=== PATIENT | female | born 1970 | race Two or more races ===

== ENCOUNTER 2018-12-22 20:38 | Emergency (ER) | payer MEDICAID ==
[~2018-12-22] VITALS: Ht 175.3 cm; Wt 220.0 kg
[2018-12-22] MEDS ORDERED: ANXIETY MED PO (20:54)
[2018-12-23] MEDS ORDERED: IBUPROFEN 800 MG TABLET ONE (00:22)
[2018-12-23] MEDS ORDERED: IBUPROFEN 800 MG TABLET PO ONE (00:30)
[2018-12-23 01:16] VITALS: BP 161/93
== END 2018-12-23 01:23 | disposition home or self-care (01) ==
LOC: EMS 20:39
DX: S60.221A Contusion of right hand, initial encounter (principal); S60.021A Contusion of right index finger without damage to nail, initial encounter; F41.9 Anxiety disorder, unspecified; W23.0XXA Caught, crushed, jammed, or pinched between moving objects, initial encounter; Y93.89 Activity, other specified; Y92.89 Other specified places as the place of occurrence of the external cause; Y99.8 Other external cause status

== ENCOUNTER 2019-04-20 18:02 | Emergency (ER) | payer BC, MEDICAID ==
[~2019-04-20] VITALS: Ht 175.3 cm; Wt 120.0 kg
[~2019-04-20 18:02] MED LIST: ANXIETY MED PO
[2019-04-20] MEDS ORDERED: TiZANidine HCL 4 MG TABLET PO ONE (21:30)
[2019-04-20] MEDS ORDERED: KETOROLAC TROMETHAMINE 30 MG/ML VIAL IM ONE (21:30)
[2019-04-20] MEDS ORDERED: LIDOCAINE 5% TRANSDERMAL PATCH TD ONE (21:30)
[2019-04-20 23:03] VITALS: BP 156/100
== END 2019-04-20 23:03 | disposition home or self-care (01) ==
LOC: EMS 18:06
DX: S16.1XXA Strain of muscle, fascia and tendon at neck level, initial encounter (principal); S29.012A Strain of muscle and tendon of back wall of thorax, initial encounter; R20.2 Paresthesia of skin; F41.9 Anxiety disorder, unspecified; V43.93XA Unspecified car occupant injured in collision with pick-up truck in traffic accident, initial encounter; Y93.89 Activity, other specified; Y92.488 Other paved roadways as the place of occurrence of the external cause; Y99.8 Other external cause status
CPT/HCPCS: 72070; 72125; 96372; 99284; J1885

== ENCOUNTER 2020-05-31 11:19 | Emergency (ER) | payer BC, MEDICAID ==
[~2020-05-31] VITALS: Ht 175.3 cm; Wt 113.6 kg
[2020-05-31] MEDS ORDERED: IBUPROFEN 600 MG TABLET PO ONE (13:30)
[2020-05-31 14:17] LABS: BASOPHILS % (AUTO) 0.6 % (0.0-2.0); EOSINOPHILS % (AUTO) 1.9 % (1.0-6.0); HEMATOCRIT 35.6 % (36-46); HEMOGLOBIN 11.6 g/dL (12.0-16.0); LYMPHOCYTES % (AUTO) 33.2 % (22.0-44.0); MEAN CORPUSCULAR HEMOGLOBIN 28.8 pg (26.0-34.0); MEAN CORPUSCULAR HGB CONC 32.4 G/dL (31.0-37.0); MEAN CORPUSCULAR VOLUME 89 fL (80-100); MONOCYTES # (AUTO) 0.5 K/uL (0.1-1.0); MONOCYTES % (AUTO) 8.9 % (2.0-9.0); NEUTROPHILS # (AUTO) 3.3 K/uL (1.8-7.7); NEUTROPHILS % (AUTO) 55.4 % (40.0-70.0); PLATELET COUNT (AUTO) 279 K/uL (150-450); RED BLOOD CELL COUNT(AUTO) 4.01 MIL/uL (4.00-5.20); RED CELL DISTRIBUTION WIDTH 15.7 % (11.5-14.5)
[2020-05-31 14:38] LABS: FREE T4 (FREE THYROXINE) 1.29 ng/dL (0.76-1.46); THYROID STIMULATING HORMONE 4.71 uIU/mL (0.36-3.74)
[2020-05-31 14:40] LABS: B-TYPE NATRIURETIC PEPTIDE 24 pg/mL (0-100)
[2020-05-31 15:27] LABS: ANION GAP 10 mmol/L (8-16); CALCIUM, TOTAL 9.2 mg/dL (8.8-10.5); CARBON DIOXIDE 27 mmol/L (22-29); CHLORIDE 103 mmol/L (98-107); CREATININE 0.78 mg/dL (0.60-1.30); GLOMERULAR FILTR. RATE CALC > 60 mL/min (>60); GLUCOSE,RANDOM 93 mg/dL (70-110); POTASSIUM 4.2 mmol/L (3.5-5.1); SODIUM SERUM 140 mmol/L (136-145); UREA NITROGEN, BLOOD 12 mg/dL (7-18)
[2020-05-31 15:33] LABS: ALANINE AMINOTRANSFERASE 36 U/L (12-78); ALBUMIN 3.5 g/dL (3.4-5.0); ALKALINE PHOSPHATASE 90 U/L (46-116); ASPARTATE AMINOTRANSFERASE 40 U/L (15-37); BILIRUBIN,TOTAL 0.3 mg/dL (0.1-1.0); TOTAL PROTEIN, SERUM 8.4 g/dL (6.4-8.2)
[2020-05-31 15:51] VITALS: BP 123/41
== END 2020-05-31 15:53 | disposition home or self-care (01) ==
LOC: EMS 11:23
DX: N93.9 Abnormal uterine and vaginal bleeding, unspecified (principal); D64.9 Anemia, unspecified
CPT/HCPCS: 84439; 84443; 93005; 99284

== ENCOUNTER 2020-11-16 18:32 | Emergency (ER) | payer MEDICAID ==
[~2020-11-16] VITALS: Ht 175.3 cm; Wt 118.2 kg
[2020-11-16] MEDS ORDERED: FURO20 PO (19:11)
[2020-11-16 21:21] LABS: BASOPHILS % (AUTO) 0.5 % (0.0-2.0); EOSINOPHILS % (AUTO) 3.1 % (1.0-6.0); HEMATOCRIT 34.7 % (36-46); HEMOGLOBIN 11.2 g/dL (12.0-16.0); LYMPHOCYTES # (AUTO) 2.4 K/uL (1.0-4.8); LYMPHOCYTES % (AUTO) 33.8 % (22.0-44.0); MEAN CORPUSCULAR HEMOGLOBIN 28.9 pg (26.0-34.0); MEAN CORPUSCULAR HGB CONC 32.4 G/dL (31.0-37.0); MEAN CORPUSCULAR VOLUME 89 fL (80-100); MONOCYTES # (AUTO) 0.5 K/uL (0.1-1.0); NEUTROPHILS # (AUTO) 3.9 K/uL (1.8-7.7); NEUTROPHILS % (AUTO) 55.6 % (40.0-70.0); PLATELET COUNT (AUTO) 268 K/uL (150-450); RED BLOOD CELL COUNT(AUTO) 3.89 MIL/uL (4.00-5.20); RED CELL DISTRIBUTION WIDTH 16.2 % (11.5-14.5)
[2020-11-16 21:33] LABS: ANION GAP 9 mmol/L (8-16); CALCIUM, TOTAL 8.8 mg/dL (8.8-10.5); CARBON DIOXIDE 27 mmol/L (22-29); CHLORIDE 104 mmol/L (98-107); CREATININE 0.75 mg/dL (0.60-1.30); GLOMERULAR FILTR. RATE CALC > 60 mL/min (>60); GLUCOSE,RANDOM 163 mg/dL (70-110); POTASSIUM 4.2 mmol/L (3.5-5.1); SODIUM SERUM 140 mmol/L (136-145); UREA NITROGEN, BLOOD 12 mg/dL (7-18)
[2020-11-16 21:42] LABS: ALANINE AMINOTRANSFERASE 37 U/L (12-78); ALBUMIN 3.4 g/dL (3.4-5.0); ALKALINE PHOSPHATASE 93 U/L (46-116); ASPARTATE AMINOTRANSFERASE 42 U/L (15-37); BILIRUBIN,TOTAL 0.5 mg/dL (0.1-1.0); LIPASE 108 U/L (73-393); TOTAL PROTEIN, SERUM 8.3 g/dL (6.4-8.2)
[2020-11-16] MEDS ORDERED: MORPHINE SULFATE 4 MG/ML SYRINGE IVP ONE (22:15)
[2020-11-17] MEDS ORDERED: KETOROLAC TROMETHAMINE 30 MG/ML VIAL IVP ONE (01:00)
[2020-11-17 02:00] VITALS: BP 132/89
== END 2020-11-17 02:27 | disposition home or self-care (01) ==
LOC: EMS 18:33
DX: R60.0 Localized edema (principal); F41.9 Anxiety disorder, unspecified; Z79.899 Other long term (current) drug therapy
CPT/HCPCS: 36415; 71045; 80053; 81025; 83690; 83880; 84484; 85025; 93005; 93970; 96374; 96375; 99285; J1885; J2270

== ENCOUNTER 2021-02-07 17:44 | Emergency (ER) | payer MEDICAID ==
[~2021-02-07] VITALS: Ht 175.3 cm; Wt 131.8 kg
[~2021-02-07 17:44] MED LIST changes: -ANXIETY MED PO; +FURO20 PO
[2021-02-07 19:37] VITALS: BP 121/72
== END 2021-02-07 20:00 | disposition home or self-care (01) ==
LOC: EMS 17:46
DX: M79.675 Pain in left toe(s) (principal)
CPT/HCPCS: 99283

== ENCOUNTER 2021-04-07 21:15 | Inpatient (IN) | payer MEDICAID ==
[~2021-04-07] VITALS: Ht 175.3 cm; Wt 164.1 kg
[2021-04-07 21:52] LABS: BASOPHILS % (AUTO) 0.5 % (0.0-2.0); EOSINOPHILS % (AUTO) 1.3 % (1.0-6.0); HEMATOCRIT 33.2 % (36-46); HEMOGLOBIN 11.1 g/dL (12.0-16.0); LYMPHOCYTES # (AUTO) 1.8 K/uL (1.0-4.8); LYMPHOCYTES % (AUTO) 19.4 % (22.0-44.0); MEAN CORPUSCULAR HEMOGLOBIN 28.8 pg (26.0-34.0); MEAN CORPUSCULAR HGB CONC 33.5 G/dL (31.0-37.0); MEAN CORPUSCULAR VOLUME 86 fL (80-100); MONOCYTES # (AUTO) 0.8 K/uL (0.1-1.0); MONOCYTES % (AUTO) 8.5 % (2.0-9.0); NEUTROPHILS # (AUTO) 6.5 K/uL (1.8-7.7); NEUTROPHILS % (AUTO) 70.3 % (40.0-70.0); PLATELET COUNT (AUTO) 322 K/uL (150-450); RED BLOOD CELL COUNT(AUTO) 3.86 MIL/uL (4.00-5.20); RED CELL DISTRIBUTION WIDTH 15.1 % (11.5-14.5)
[2021-04-07 22:00] LABS: ANION GAP 8 mmol/L (8-16); CALCIUM, TOTAL 9.1 mg/dL (8.8-10.5); CARBON DIOXIDE 30 mmol/L (22-29); CHLORIDE 101 mmol/L (98-107); CREATININE 0.87 mg/dL (0.60-1.30); GLOMERULAR FILTR. RATE CALC > 60 mL/min (>60); GLUCOSE,RANDOM 118 mg/dL (70-110); POTASSIUM 3.9 mmol/L (3.5-5.1); SODIUM SERUM 139 mmol/L (136-145); UREA NITROGEN, BLOOD 10 mg/dL (7-18)
[2021-04-07 22:06] LABS: ALANINE AMINOTRANSFERASE 77 U/L (12-78); ALBUMIN 3.2 g/dL (3.4-5.0); ALKALINE PHOSPHATASE 162 U/L (46-116); ASPARTATE AMINOTRANSFERASE 64 U/L (15-37); BILIRUBIN,TOTAL 0.4 mg/dL (0.1-1.0); TOTAL PROTEIN, SERUM 8.4 g/dL (6.4-8.2)
[2021-04-08] MEDS ORDERED: BARIUM SULFATE 0.1% SUSPENSION 450 ML BOTTLE PO ONE (00:30)
[2021-04-08] MEDS ORDERED: ONDANSETRON HCL 4 MG/2 ML VIAL IVP ONE (00:30)
[2021-04-08] MEDS ORDERED: HYDROmorphone 2 MG/ML VIAL IVP ONE ×3 (00:30→05:00)
[2021-04-08] MEDS ORDERED: SODIUM CHLORIDE 0.9% 1,000 ML IV ONE ×2 (00:30→05:00)
[2021-04-08] MEDS ORDERED: IOHEXOL 350 MG/ML 150 ML VIAL ONE (01:00)
[2021-04-08] MEDS ORDERED: SODIUM CHLORIDE 0.9% 100 ML ONE (01:01)
[2021-04-08 01:14] LABS: LIPASE 69 U/L (73-393)
[2021-04-08] MEDS ORDERED: CefTRIAXone 1 GM/DEXTROSE 50 ML IV ONE (04:00)
[2021-04-08] MEDS ORDERED: PIPERACILLIN/TAZO 3.375 GM/D5W 50 ML IV ONE (04:50)
[2021-04-08] MEDS ORDERED: ONDANSETRON HCL 4 MG/2 ML VIAL IVP PRN ×2 (05:00→13:00)
[2021-04-08] MEDS ORDERED: 0.9% SODIUM CHLORIDE 10 ML SYRINGE IVP PRN (05:00)
[2021-04-08 05:20] LABS: COVID AG,FIA SOURCE NASOPHARYNGEAL
[2021-04-08 05:23] LABS: APPEARANCE,URINE CLEAR (CLEAR); BILIRUBIN,URINE NEGATIVE (NEGATIVE); GLUCOSE, URINE (UA) NEGATIVE (NEGATIVE); KETONES,URINE NEGATIVE (NEGATIVE); LEUKOCYTE ESTERASE ,URINE NEGATIVE (NEGATIVE); NITRATE,URINE NEGATIVE (NEGATIVE); OCCULT BLOOD,URINE NEGATIVE (NEGATIVE); PH,URINE 6.5 (5.0-8.0); PROTEIN,URINE NEGATIVE (NEGATIVE); UROBILINOGEN,URINE 0.2 mg/dL (<=1.0)
[2021-04-08] MEDS: HYDROmorphone 2 MG/ML VIAL IVP PRN ×2 (07:52→11:44)
[2021-04-08] MEDS ORDERED: PIPERACILLIN/TAZO 3.375 GM/D5W 50 ML IV SCH (11:00)
[2021-04-08] MEDS ORDERED: ACETAMINOPHEN 325 MG TABLET PO PRN (13:00)
[2021-04-08] MEDS ORDERED: MORPHINE SULFATE 2 MG/ML SYRINGE IVP PRN (13:00)
[2021-04-08] MEDS ORDERED: ZOLPIDEM TARTRATE 5 MG TABLET PO PRN (13:00)
[2021-04-08] MEDS ORDERED: MAGNESIUM HYDROXIDE SUSPENSION 30 ML UDCUP PO PRN (13:00)
[2021-04-08] MEDS ORDERED: BISACODYL 10 MG RECTAL RECTAL SUPPOSITORY PR PRN (13:00)
[2021-04-08 15:56] VITALS: BP 136/96
[2021-04-08] MEDS ORDERED: SODIUM CHLORIDE 0.9% 500 ML IV ONE (16:07)
[2021-04-08] MEDS: PIPERACILLIN/TAZO 3.375 GM/D5W 50 ML IV SCH ×2 (17:26→23:20)
[2021-04-08] MEDS: HEPARIN SODIUM,PORCINE 5,000 UNITS/ML VIAL SQ SCH (17:26)
[2021-04-08] MEDS: HYDROCODONE/ACETAMINOPHEN 5-325 MG TABLET PO PRN ×2 (17:30→21:29)
[2021-04-08 21:04] VITALS: BP 156/84
[2021-04-08] MEDS: DOCUSATE SODIUM 100 MG CAPSULE PO SCH (21:28)
[2021-04-09 04:09] VITALS: BP 146/82
[2021-04-09] MEDS: HYDROCODONE/ACETAMINOPHEN 5-325 MG TABLET PO PRN ×4 (04:12→23:34)
[2021-04-09 04:47] VITALS: BP 131/76
[2021-04-09] MEDS: PIPERACILLIN/TAZO 3.375 GM/D5W 50 ML IV SCH ×4 (05:01→22:21)
[2021-04-09] MEDS ORDERED: SODIUM CHLORIDE 0.9% 1,000 ML IV SCH (06:45)
[2021-04-09 07:29] VITALS: BP 148/91
[2021-04-09 07:52] LABS: BASOPHILS % (AUTO) 0.6 % (0.0-2.0); EOSINOPHILS % (AUTO) 1.6 % (1.0-6.0); HEMATOCRIT 30.6 % (36-46); HEMOGLOBIN 10.3 g/dL (12.0-16.0); LYMPHOCYTES # (AUTO) 1.7 K/uL (1.0-4.8); LYMPHOCYTES % (AUTO) 29.5 % (22.0-44.0); MEAN CORPUSCULAR HEMOGLOBIN 28.9 pg (26.0-34.0); MEAN CORPUSCULAR HGB CONC 33.6 G/dL (31.0-37.0); MEAN CORPUSCULAR VOLUME 86 fL (80-100); MONOCYTES # (AUTO) 0.6 K/uL (0.1-1.0); MONOCYTES % (AUTO) 11.1 % (2.0-9.0); NEUTROPHILS # (AUTO) 3.3 K/uL (1.8-7.7); NEUTROPHILS % (AUTO) 57.2 % (40.0-70.0); PLATELET COUNT (AUTO) 282 K/uL (150-450); RED BLOOD CELL COUNT(AUTO) 3.56 MIL/uL (4.00-5.20); RED CELL DISTRIBUTION WIDTH 15.3 % (11.5-14.5)
[2021-04-09 07:56] LABS: ANION GAP 6 mmol/L (8-16); CALCIUM, TOTAL 8.6 mg/dL (8.8-10.5); CARBON DIOXIDE 31 mmol/L (22-29); CHLORIDE 101 mmol/L (98-107); CREATININE 0.89 mg/dL (0.60-1.30); GLOMERULAR FILTR. RATE CALC > 60 mL/min (>60); GLUCOSE,RANDOM 107 mg/dL (70-110); POTASSIUM 3.9 mmol/L (3.5-5.1); SODIUM SERUM 138 mmol/L (136-145); UREA NITROGEN, BLOOD 6 mg/dL (7-18)
[2021-04-09] MEDS: FUROSEMIDE 20 MG TABLET PO SCH (09:17)
[2021-04-09] MEDS: DOCUSATE SODIUM 100 MG CAPSULE PO SCH ×2 (09:17→20:46)
[2021-04-09] MEDS: PANTOPRAZOLE SODIUM 40 MG DR TABLET PO SCH (09:18)
[2021-04-09] MEDS: HEPARIN SODIUM,PORCINE 5,000 UNITS/ML VIAL SQ SCH ×4 (09:18→23:34)
[2021-04-09 16:00] VITALS: BP 160/90
[2021-04-09 20:10] VITALS: BP 151/83
[2021-04-10 04:23] VITALS: BP 142/93
[2021-04-10] MEDS: PIPERACILLIN/TAZO 3.375 GM/D5W 50 ML IV SCH ×2 (05:03→11:19)
[2021-04-10] MEDS: HYDROCODONE/ACETAMINOPHEN 5-325 MG TABLET PO PRN ×3 (05:10→20:52)
[2021-04-10 06:54] LABS: BASOPHILS % (AUTO) 0.4 % (0.0-2.0); EOSINOPHILS % (AUTO) 2.6 % (1.0-6.0); HEMATOCRIT 31.8 % (36-46); HEMOGLOBIN 11.1 g/dL (12.0-16.0); MEAN CORPUSCULAR HEMOGLOBIN 29.7 pg (26.0-34.0); MEAN CORPUSCULAR HGB CONC 34.8 G/dL (31.0-37.0); MEAN CORPUSCULAR VOLUME 85 fL (80-100); MONOCYTES # (AUTO) 0.6 K/uL (0.1-1.0); MONOCYTES % (AUTO) 10.7 % (2.0-9.0); NEUTROPHILS # (AUTO) 2.8 K/uL (1.8-7.7); NEUTROPHILS % (AUTO) 50.3 % (40.0-70.0); PLATELET COUNT (AUTO) 316 K/uL (150-450); RED BLOOD CELL COUNT(AUTO) 3.74 MIL/uL (4.00-5.20); RED CELL DISTRIBUTION WIDTH 15.6 % (11.5-14.5)
[2021-04-10 07:10] LABS: ANION GAP 2 mmol/L (8-16); CALCIUM, TOTAL 9.3 mg/dL (8.8-10.5); CARBON DIOXIDE 34 mmol/L (22-29); CHLORIDE 102 mmol/L (98-107); CREATININE 0.87 mg/dL (0.60-1.30); GLOMERULAR FILTR. RATE CALC > 60 mL/min (>60); GLUCOSE,RANDOM 132 mg/dL (70-110); POTASSIUM 3.6 mmol/L (3.5-5.1); SODIUM SERUM 138 mmol/L (136-145); UREA NITROGEN, BLOOD 5 mg/dL (7-18)
[2021-04-10 08:00] VITALS: BP 135/86
[2021-04-10] MEDS: HEPARIN SODIUM,PORCINE 5,000 UNITS/ML VIAL SQ SCH ×3 (08:00→23:40)
[2021-04-10] MEDS: DOCUSATE SODIUM 100 MG CAPSULE PO SCH ×2 (08:24→20:49)
[2021-04-10] MEDS: PANTOPRAZOLE SODIUM 40 MG DR TABLET PO SCH (08:24)
[2021-04-10] MEDS: FUROSEMIDE 20 MG TABLET PO SCH (08:25)
[2021-04-10] MEDS ORDERED: IOHEXOL 350 MG/ML 150 ML VIAL ONE (12:23)
[2021-04-10] MEDS ORDERED: SODIUM CHLORIDE 0.9% 100 ML ONE (12:23)
[2021-04-10 15:58] VITALS: BP 145/86
[2021-04-10 20:17] VITALS: BP 131/74
[2021-04-10] MEDS: AMOX TR/POT CLAV 875 MG/125 MG TABLET PO SCH (20:49)
[2021-04-11] MEDS: HYDROCODONE/ACETAMINOPHEN 5-325 MG TABLET PO PRN ×4 (04:32→22:59)
[2021-04-11 04:33] VITALS: BP 142/95
[2021-04-11 06:39] LABS: BASOPHILS % (AUTO) 0.5 % (0.0-2.0); EOSINOPHILS % (AUTO) 3.8 % (1.0-6.0); HEMATOCRIT 32.7 % (36-46); HEMOGLOBIN 10.9 g/dL (12.0-16.0); LYMPHOCYTES # (AUTO) 2.1 K/uL (1.0-4.8); LYMPHOCYTES % (AUTO) 39.1 % (22.0-44.0); MEAN CORPUSCULAR HEMOGLOBIN 28.6 pg (26.0-34.0); MEAN CORPUSCULAR HGB CONC 33.4 G/dL (31.0-37.0); MEAN CORPUSCULAR VOLUME 86 fL (80-100); MONOCYTES # (AUTO) 0.5 K/uL (0.1-1.0); MONOCYTES % (AUTO) 9.2 % (2.0-9.0); NEUTROPHILS # (AUTO) 2.5 K/uL (1.8-7.7); NEUTROPHILS % (AUTO) 47.4 % (40.0-70.0); PLATELET COUNT (AUTO) 330 K/uL (150-450); RED BLOOD CELL COUNT(AUTO) 3.82 MIL/uL (4.00-5.20); RED CELL DISTRIBUTION WIDTH 14.9 % (11.5-14.5)
[2021-04-11 06:51] LABS: ANION GAP 3 mmol/L (8-16); CALCIUM, TOTAL 8.9 mg/dL (8.8-10.5); CARBON DIOXIDE 32 mmol/L (22-29); CHLORIDE 101 mmol/L (98-107); CREATININE 0.92 mg/dL (0.60-1.30); GLOMERULAR FILTR. RATE CALC > 60 mL/min (>60); GLUCOSE,RANDOM 151 mg/dL (70-110); POTASSIUM 3.6 mmol/L (3.5-5.1); SODIUM SERUM 136 mmol/L (136-145); UREA NITROGEN, BLOOD 6 mg/dL (7-18)
[2021-04-11 07:50] VITALS: BP 151/85
[2021-04-11] MEDS: AMOX TR/POT CLAV 875 MG/125 MG TABLET PO SCH ×2 (08:26→20:02)
[2021-04-11] MEDS: PANTOPRAZOLE SODIUM 40 MG DR TABLET PO SCH (08:27)
[2021-04-11] MEDS: FUROSEMIDE 20 MG TABLET PO SCH (08:27)
[2021-04-11] MEDS: DOCUSATE SODIUM 100 MG CAPSULE PO SCH ×2 (08:27→20:02)
[2021-04-11] MEDS: HEPARIN SODIUM,PORCINE 5,000 UNITS/ML VIAL SQ SCH ×3 (08:27→22:59)
[2021-04-11 15:57] VITALS: BP 155/95
[2021-04-11 20:00] VITALS: BP 149/94
[2021-04-12 04:52] VITALS: BP 134/61
[2021-04-12] MEDS: HYDROCODONE/ACETAMINOPHEN 5-325 MG TABLET PO PRN (05:36)
[2021-04-12 08:17] VITALS: BP 139/83
[2021-04-12] MEDS: AMOX TR/POT CLAV 875 MG/125 MG TABLET PO SCH (08:27)
[2021-04-12] MEDS: PANTOPRAZOLE SODIUM 40 MG DR TABLET PO SCH (08:27)
[2021-04-12] MEDS: HEPARIN SODIUM,PORCINE 5,000 UNITS/ML VIAL SQ SCH (08:27)
[2021-04-12] MEDS: DOCUSATE SODIUM 100 MG CAPSULE PO SCH (08:27)
[2021-04-12] MEDS: FUROSEMIDE 20 MG TABLET PO SCH (08:28)
[2021-04-12] MEDS ORDERED: AMOX1TAB16 PO ×2 (09:41→09:50)
== END 2021-04-12 10:00 | disposition home or self-care (01) | DRG 244 ==
LOC: EMS 21:16 → 6N 04-08 14:52
PROVIDERS: ADMIT Internal Medicine; ATTEND Internal Medicine
DX: K57.20 Diverticulitis of large intestine with perforation and abscess without bleeding (principal); L03.116 Cellulitis of left lower limb; D64.9 Anemia, unspecified; E66.01 Morbid (severe) obesity due to excess calories; Z20.822 Contact with and (suspected) exposure to COVID-19; F41.9 Anxiety disorder, unspecified; Z68.43 Body mass index [BMI] 50.0-59.9, adult; Z79.899 Other long term (current) drug therapy
CPT/HCPCS: 71045; 74177; 76700; 80048; 80053; 81003; 83690; 84484; 84703; 85025; 93005; 93970; 99285; G0480; J0696; J1170; J1644; J2405; J2543; J7030; J7040; J7050; Q9967; 36415-L1; 36415-TC

== ENCOUNTER 2023-07-23 18:56 | Emergency (ER) | payer MEDICAID ==
[~2023-07-23] VITALS: Ht 175.3 cm; Wt 143.2 kg
[~2023-07-23 18:56] MED LIST changes: +AMOX1TAB16 PO
[2023-07-23 19:10] VITALS: BP 154/96; PULSE 92; RESP 18; TEMP 98.2
[2023-07-23] MEDS ORDERED: GABA600T10 PO (19:20)
[2023-07-23 19:27] LABS: COVID AG,FIA SOURCE NASAL SWAB
[2023-07-23 20:26] LABS: SARS-COV2 (COVID) ANTIGEN,FIA Negative (Negative)
[2023-07-23 20:28] LABS: INFLUENZA TYPE A NEGATIVE FOR TYPE A (NEGATIVE); INFLUENZA TYPE B NEGATIVE FOR TYPE B (NEGATIVE)
== END 2023-07-23 23:19 | disposition left against medical advice (07) ==
LOC: EMS 18:57
DX: R50.9 Fever, unspecified (principal); Z20.822 Contact with and (suspected) exposure to COVID-19; Z53.21 Procedure and treatment not carried out due to patient leaving prior to being seen by health care provider
CPT/HCPCS: 71045; 87804; 93005; 99281

== ENCOUNTER 2024-06-06 13:37 | Emergency (ER) | payer MEDICAID ==
[~2024-06-06] VITALS: Ht 172.7 cm; Wt 100.0 kg
[~2024-06-06 13:37] MED LIST changes: -AMOX1TAB16 PO; -FURO20 PO; +FURO20TA5 PO; +GABA-1404 PO
[2024-06-06 13:42] VITALS: PULSE 68; TEMP 98.5
[2024-06-06 14:21] LABS: COVID AG,FIA SOURCE NASAL SWAB
[2024-06-06 14:50] LABS: INFLUENZA TYPE A NEGATIVE FOR TYPE A (NEGATIVE); INFLUENZA TYPE B NEGATIVE FOR TYPE B (NEGATIVE)
[2024-06-06 14:58] LABS: SARS-COV2 (COVID) ANTIGEN,FIA Positive (Negative)
[2024-06-06 14:59] LABS: RAPID GROUP A STREP NEGATIVE (NEGATIVE)
[2024-06-06 15:39] LABS: BASOPHILS % (AUTO) 0.9 % (0.0-2.0); EOSINOPHILS % (AUTO) 2.7 % (1.0-6.0); HEMOGLOBIN 10.8 g/dL (12.0-16.0); LYMPHOCYTES # (AUTO) 1.6 K/uL (1.0-4.8); LYMPHOCYTES % (AUTO) 32.6 % (22.0-44.0); MEAN CORPUSCULAR HEMOGLOBIN 30.3 pg (26.0-34.0); MEAN CORPUSCULAR HGB CONC 32.8 G/dL (31.0-37.0); MEAN CORPUSCULAR VOLUME 92 fL (80-100); MONOCYTES # (AUTO) 0.3 K/uL (0.1-1.0); MONOCYTES % (AUTO) 7.1 % (2.0-9.0); NEUTROPHILS # (AUTO) 2.7 K/uL (1.8-7.7); NEUTROPHILS % (AUTO) 56.7 % (40.0-70.0); PLATELET COUNT (AUTO) 202 K/uL (150-450); RED BLOOD CELL COUNT(AUTO) 3.57 MIL/uL (4.00-5.20); RED CELL DISTRIBUTION WIDTH 14.8 % (11.5-14.5); WHITE BLOOD COUNT (AUTO) 4.8 K/uL (4.5-11.0)
[2024-06-06 15:41] LABS: ANION GAP 6 mmol/L (8-16); CALCIUM, TOTAL 8.4 mg/dL (8.8-10.5); CARBON DIOXIDE 31 mmol/L (22-29); CHLORIDE 105 mmol/L (98-107); GLOMERULAR FILTR. RATE CALC > 60 mL/min (>60); GLUCOSE,RANDOM 174 mg/dL (70-110); POTASSIUM 3.8 mmol/L (3.5-5.1); SODIUM SERUM 142 mmol/L (136-145); UREA NITROGEN, BLOOD 18 mg/dL (7-18)
[2024-06-06] MEDS ORDERED: NIRM1TAB10 PO (16:27)
[2024-06-06] MEDS ORDERED: BENZ-227 PO (16:27)
[2024-06-06] MEDS ORDERED: ALBU18HF12 IH (16:27)
[2024-06-06 16:43] VITALS: BP 156/94; RESP 18; O2SAT 99
== END 2024-06-06 17:12 | disposition home or self-care (01) ==
LOC: EMS 13:37
DX: U07.1 COVID-19 (principal); F41.9 Anxiety disorder, unspecified; I10 Essential (primary) hypertension; Z79.899 Other long term (current) drug therapy; Z85.038 Personal history of other malignant neoplasm of large intestine; Z20.822 Contact with and (suspected) exposure to COVID-19
CPT/HCPCS: 71045; 80048; 85025; 87430; 87804; 99284; 36415-L1; 36415-TC